=== PATIENT | female | born 1980 | race Hispanic/Latino ===

== ENCOUNTER 2018-04-26 00:49 | Emergency (ER) | payer OTHER, SELFPAY ==
--- NOTE | 2018-04-26 01:09 | ED.PDOC ---
History of Present Illness - General Chief Complaint: GI Problem Stated Complaint: N/V, chills since yesterday morning Time Seen by Provider: 04/26/18 01:01 Information Source: patient Exam Limitations: physical impairment - unable to speak-has certified court/medical interpreter - History of Present Illness Initial Comments: Amy Avila 38 y/o female brought by friend with on and off nausea/vomiting since yesterday morning.No diarrhea,no hematemesis,but with body aches ,mild cough as was told by the certified court/medical interpreter.No chronic medical problem.Never seen Md since she was a child.No abdominal pains.Stated unable to get anything down since she throws it up right away.Had also sharp pains mid chest. Abdominal Pain Onset Location: other - none Pain Radiation: no radiation Quality: moderate Timing/Duration: 24 hours Improving Factors: nothing Worsening Factors: nothing Associated Symptoms: nausea/vomiting Review of Systems - Review of Systems Constitutional: States: fever, other - body aches EENTM: States: no symptoms reported Respiratory: States: no symptoms reported Cardiology: States: see HPI, chest pain Gastrointestinal/Abdominal: States: see HPI Genitourinary: States: no symptoms reported Musculoskeletal: States: no symptoms reported Skin: States: no symptoms reported Past Medical History (General) - Patient Medical History Hx Seizures: No Hx Asthma: No Surgical History: no surgical history - Vaccination History Immunizations Up to Date: No - unknown - Social History Hx Tobacco Use: No Hx Alcohol Use: No Hx Substance Use: No Hx Physical Abuse: No Hx Emotional Abuse: No - Female History Patient is a Female of Child Bearing Age (10 -59 yrs old): Yes Hx Last Menstrual Period: 04/06/18 Patient : No Family Medical History - Family History Mother Family History: Unknown Physical Exam - Physical Exam General Appearance: Alert, Anxious, No apparent distress Eyes, Ears, Nose, Throat Exam: normal ENT inspection, pharyngeal erythema Neck: non-tender, normal inspection Respiratory: chest non-tender, lungs clear, normal breath sounds Cardiovascular/Chest: normal peripheral pulses, regular rate, rhythm, no murmur Peripheral Pulses: No deficit Gastrointestinal/Abdominal: soft, no organomegaly, tenderness - lower abdomen,no peritoneal signs Back Exam: no CVA tenderness, no vertebral tenderness Extremity: no pedal edema, no calf tenderness Neurologic: alert, oriented x 3 Skin Exam: normal color, warm/dry Progress - Progress Progress: 04/26/18 01:24 Vital Signs - 8 hr 04/26/18 01:00 Temperature 100.1 F H Pulse Rate [ 114 H monitor] Respiratory 18 Rate Blood Pressure 145/73 [Left Arm] O2 Sat by Pulse 98 Oximetry - Results/Orders Results/Orders: 04/26/18 01:10 IV Care:Saline Lock per Protoc QSHIFT CARDIAC PANEL,ER Stat HEPATIC FUNCTION PANEL Stat LIPASE Stat 04/26/18 01:35 STREP A SCREEN CULTURE Stat 04/26/18 02:07 Abdomen/Pelvis w/Contrast [CT] Stat 04/26/18 02:08 Hold Metformin x 48Hrs [id number] Chest,1 View [RAD] Stat Laboratory Results - last 24 hr 04/26/18 04/26/18 04/26/18 01:10 01:10 01:35 WBC 13.5 H RBC 4.51 Hgb 13.8 Hct 40.2 MCV 89.1 MCH 30.6 MCHC 34.4 RDW 12.8 Plt Count 270 MPV 8.2 Absolute Neuts (auto) 11.20 H Absolute Lymphs (auto) 1.20 Absolute Monos (auto) 0.90 H Absolute Eos (auto) 0.00 Absolute Basos (auto) 0.10 Neutrophils % 83.1 H Lymphocytes % 9.1 L Monocytes % 6.8 Eosinophils % 0.4 L Basophils % 0.6 PT 9.9 INR 0.99 PTT (SP) 26.9 Sodium 137 Potassium 3.3 L Chloride 106 Carbon Dioxide 22 Anion Gap 12.3 BUN 6 L Creatinine 0.66 BUN/Creatinine Ratio 9.1 L Random Glucose 131 H Serum Osmolality 273.2 L Lactic Acid 1.7 Calcium 9.3 Magnesium 1.9 Total Bilirubin 1.0 Direct Bilirubin 0.1 Indirect Bilirubin 0.9 H AST 25 ALT 24 Alkaline Phosphatase 71 Creatine Kinase 147 H Serum Total Protein 8.2 Albumin 4.5 Lipase 31 Urine Color Urine Appearance Urine pH Ur Specific [place] Urine Protein Urine Glucose (UA) Urine Ketones Urine Blood Urine Nitrite Urine Bilirubin Urine Urobilinogen Ur Leukocyte Esterase Urine RBC Urine WBC Ur Epithelial Cells Urine Bacteria Urine HCG, Qual Negative Group A Strep Rapid 04/26/18 04/26/18 01:35 01:35 WBC RBC Hgb Hct MCV MCH MCHC RDW Plt Count MPV Absolute Neuts (auto) Absolute Lymphs (auto) Absolute Monos (auto) Absolute Eos (auto) Absolute Basos (auto) Neutrophils % Lymphocytes % Monocytes % Eosinophils % Basophils % PT INR PTT (SP) Sodium Potassium Chloride Carbon Dioxide Anion Gap BUN Creatinine BUN/Creatinine Ratio Random Glucose Serum Osmolality Lactic Acid Calcium Magnesium Total Bilirubin Direct Bilirubin Indirect Bilirubin AST ALT Alkaline Phosphatase Creatine Kinase Serum Total Protein Albumin Lipase Urine Color Yellow Urine Appearance Clear Urine pH 7.0 Ur Specific [place] 1.010 Urine Protein Negative Urine Glucose (UA) Negative Urine Ketones Negative Urine Blood Small H Urine Nitrite Negative Urine Bilirubin Negative Urine Urobilinogen 0.2 Ur Leukocyte Esterase Negative Urine RBC 1-3 Urine WBC 1-3 Ur Epithelial Cells 5-10 Urine Bacteria Rare Urine HCG, Qual Group A Strep Rapid Negative All test results discuss with patient thru our nurse who relayed/interpreted result to patient - EKG/XRAY/CT XRAY: chest - clear lungs CT Ordered: Yes - abd/p-no acute abnormalities noted Departure - Departure Clinical Impression: Nausea & vomiting Qualifiers: Vomiting type: unspecified Vomiting Intractability: non-intractable Qualified Code(s): R11.2 - Nausea with vomiting, unspecified Abdominal pain Qualifiers: Abdominal location: lower abdomen, unspecified Qualified Code(s): R10.30 - Lower abdominal pain, unspecified Time of Disposition: 03:10 Disposition: Discharge to Home or Self Care Condition: Good Departure Forms: ED Discharge - Pt. Copy, Patient Portal Self Enrollment Instructions: [place] Diet Diet: bland diet - until better, other - AVOID GREASY/SPICY FOODS UNTIL BETTER Prescriptions: Ondansetron [Ondansetron Odt] 4 mg PO Q8HRS PRN #7 tab PRN Reason: Nausea Home Medications: Ambulatory Orders Ondansetron [Ondansetron Odt] 4 mg PO Q8HRS PRN #7 tab 04/26/18 Additional Instructions: Return to emergency room as needed;Follow up with your primary Md 27 April 2018 for recheck if needed
[2018-04-26] MEDS ORDERED: SODIUM CHLORIDE 0.9% 1000ML 1,000 ML IVS ONE (01:10)
[2018-04-26] MEDS ORDERED: ONDANSETRON INJ 4 MG/2 ML VIAL IV ONE (01:10)
[2018-04-26 02:05] VITALS: O2SAT 99
--- NOTE | 2018-04-26 02:59 | CT ---
CLINICAL HISTORY: N/V;abdominal pain COMPARISON: None. TECHNIQUE: CT ABDOMEN PELVIS WITH IV CONTRAST on 04/26/2018 2:07 AM CHEESEMAKER This exam was performed according to our departmental dose-optimization program, which includes automated exposure control, adjustment of the mA and/or kV according to patient size and/or use of iterative reconstruction technique. FINDINGS: Lower lungs are clear. Abdomen: The liver is normal in appearance. There is no biliary dilatation. Gallbladder is normal in appearance. The pancreas and spleen are normal in appearance. The adrenal glands and kidneys are unremarkable. Abdominal aorta is normal in course and caliber without aneurysm. There is no free air. There is no retroperitoneal adenopathy. Pelvis: There is no bowel obstruction. Urinary bladder is unremarkable. There is no free fluid. Uterus is normal in size. Appendix is normal. Skeleton: There are no acute osseous findings. No suspicious bony lesions. IMPRESSION: No acute inflammatory process. No renal or ureteral calculi. Electronically signed by: Luke Jean MD 04/26/2018 2:58 AM CHEESEMAKER
--- NOTE | 2018-04-26 03:02 | RAD ---
CLINICAL HISTORY: fever COMPARISON: None. TECHNIQUE: XR CHEST 1 VIEW 04/26/2018 2:08 AM TIRE RECAPPING MACHINE OPERATOR FINDINGS: Cardiac silhouette is normal in size. Lungs are clear without consolidation, atelectasis, mass or edema. There is no pleural effusion. There is no pneumothorax. There are no acute osseous findings. IMPRESSION: Clear lungs. Electronically signed by: Luke Jean MD 04/26/2018 3:00 AM TIRE RECAPPING MACHINE OPERATOR
[2018-04-26 03:05] VITALS: BP 99/65; TEMP 99.9
[2018-04-26] MEDS ORDERED: ONDANSETRON ODT (ER DISP) 8 MG TAB PO ONE (03:12)
== END 2018-04-26 03:28 | disposition home or self-care (01) ==
LOC: EDBD 00:49 → ER 00:49
DX: R11.2 Nausea with vomiting, unspecified (principal); R10.30 Lower abdominal pain, unspecified
CPT/HCPCS: 36415; 71045; 74177; 80048; 80076; 81001; 81025; 82550; 82553; 83605; 83690; 84484; 85025; 85610; 85730; 87070; 87502; 87880; J2405; J7030